=== PATIENT | female | born 1930 | race Caucasian/White ===

== ENCOUNTER 2016-04-09 22:35 | Emergency (ER) | payer OTHER ==
[~2016-04-09] VITALS: Ht 162.6 cm; Wt 102.1 kg
[~2016-04-09 22:35] MED LIST: ALPRAZOLAM0.5 MG PO; ATORVASTATIN CA20 MG PO; BUPROPION HYDR150 M1 PO; CIPRO 500MG TA500 MG PO; DONEPEZIL HYDROC5 MG PO; FUROSEMIDE20 MG PO; LOPRESSOR 25MG25 MG PO; PERCOCET 325 MG1 TA2 PO; POTASSIUM CHLO20 ME1 PO; PRINIVIL 5MG5 MG PO; RESTASIS 0.4 M0.4 ML OPH; VITAMIN D50000 IU PO; XARELTO15 MG PO; XARELTO20 MG PO
--- NOTE | 2016-04-09 22:43 | ED SYNCOPE COMPLAINT ---
History of Present Illness General Chief Complaint: Syncope and Near-Syncope Stated Complaint: BIBA SYNCOPE Source: family, old records, EMS Exam Limitations: dementia Vital Signs & Intake/Output Vital Signs & Intake/Output Vital Signs Date Time Temp Pulse Resp B/P Pulse O2 O2 Flow FiO2 Ox Delivery Rate 04/10 0525 97.4 75 18 140/63 96 Room Air 04/10 0235 68 16 134/69 98 Room Air 04/10 0147 97.0 70 16 126/60 96 Room Air 04/09 2319 Room Air 04/09 2308 130/70 04/09 2248 96.8 84 20 207/81 98 Room Air ED Intake and Output 04/10 0000 04/09 1200 Intake Total Output Total Balance Patient 225 lb Weight Allergies Coded Allergies: MDX - Aspirin (ASPIRIN) (RASH 09/11/14) Reconcile Medications Alprazolam 0.25 MG TABLET 1 TAB PO DAILY ANXIETY (Reported) Atorvastatin Calcium 20 MG TABLET 1 TAB PO DAILY HTN (Reported) Atorvastatin Calcium (Lipitor) 20 MG TABLET 1 TAB PO DAILY CHOLESTEROL ( Reported) BUPROPION HCL (Bupropion XL) 150 MG TAB.ER.24H 1 TAB PO DAILY MENTAL HEALTH ( Reported) Ciprofloxacin (Cipro) 500 MG TABLET 1 TAB PO BID UTI START TOMORROW 06/11/14. Cyclosporine (Restasis 0.4 Ml) 0.05 % DROPERETTE 1 GTT OPH BID EYES (Reported ) DONEPEZIL HCL (Donepezil Hydrochloride) 5 MG TABLET 1 TAB PO DAILY DEMENTIA ( Reported) ERGOCALCIFEROL (VITAMIN D2) (Vitamin D2) 50,000 UNIT CAPSULE 50,000 IU PO Q30D VITAMIN D SUPPLEMENT (Reported) DID NOT TAKE IN HOSPITAL Furosemide 20 MG TABLET 1 TAB PO DAILY DIURETIC (Reported) Lisinopril (Prinivil) 5 MG TABLET 1 TAB PO DAILY BP (Reported) Metoprolol Tartrate (Lopressor) 25 MG TABLET 1 TAB PO DAILY BP (Reported) OXYCODONE HCL/ACETAMINOPHEN (Percocet 5-325 MG Tablet) 325 MG/5 MG TAB 1-2 TAB PO Q4-6 PRN PRN PAIN (Reported) Potassium Chloride 20 MEQ TABLET.ER 1 TAB PO DAILY SUPPLEMENT (Reported) Rivaroxaban (Xarelto) 20 MG TABLET 1 TAB PO DAILY BLOOD THINNER (Reported) with food Triage Nurses Notes Reviewed? yes HPI: Patient was sitting on the toilet when she had a syncopal episode. Patient has dementia and is unable to provide any history however her sister was in the bathroom with her at the time. Patient has been acting appropriately since syncopal episode. Patient did not fall off the toilet and there is no trauma. Family called 911 and brought her in for evaluation. Past History Medical History Any Pertinent Medical History? 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) Gastrointestinal: NONE Hepatic: NONE Renal: nephrolithiasis, urinary incontinence Musculoskeletal: arthritis s/p knee replacement Psychiatric: anxiety, depression Endocrine: NONE Blood Disorders: DVT (x 2), PE Cancer(s): NONE RING FACER/Reproductive: NONE History of MRSA: No History of VRE: No History of CDIFF: No Surgical History Surgical History: RIGHT KNEE REPLACEMENT Psychosocial History Who do you live with Family Services at Home Home Health Aide What is your primary language German Tobacco Use: Never used ETOH Use: denies use Illicit Drug Use: denies illicit drug use Family History Family History, If Any: FATHER Relation not specified for: FH: asthma Hx Contributory? No Review of Systems Review of Systems Constitutional: Reports: see HPI. Physical Exam Physical Exam General Appearance: well developed/nourished, awake, anxious, mild distress Head: atraumatic, normal appearance Eyes: Bilateral: PERRL, EOMI. Ears, Nose, Throat: normal pharynx, normal ENT inspection Neck: normal inspection, supple, full range of motion Respiratory: normal breath sounds, no respiratory distress, lungs clear Cardiovascular: regular rate/rhythm, normal peripheral pulses Gastrointestinal: normal bowel sounds, soft, non-tender, no organomegaly Extremities: normal inspection, normal capillary refill, pedal edema Psychiatric: AT BASELINE PER SISTERS Cranial Nerves: normal hearing, normal speech, PERRL Motor/Sensory: no motor/sensory deficits Core Measures ACS in differential dx? Yes CVA/TIA Diagnosis: No Severe Sepsis Present: No Septic Shock Present: No Progress Differential Diagnosis: drug induced syncope, orthostatic syncope, other valvular disease, pericardial tamponade, pulmonary embolus, seizure, sick sinus syndrome, vasodepressor syncope, ventricular tach/fib Plan of Care: Orders Procedure Date/time Status Heart Healthy Diet 04/10 B Active TROPONIN LEVEL 04/10 453 Complete EKG 04/10 453 Active Add-on Test (ER Only) 04/10 001 Active Telemetry/Salvage Machine Operator 04/09 2242 Active URINALYSIS 04/09 2242 Complete TROPONIN LEVEL 04/09 2242 Complete COMPREHENSIVE METABOLIC PANEL 04/09 2242 Complete CBC WITHOUT DIFFERENTIAL 04/09 2242 Complete CULTURE,URINE 04/09 2239 Active EKG 04/09 2236 Active Laboratory Tests 04/10/16 0505: Troponin I < 0.01 04/09/16 2358: Anion Gap 10, Estimated GFR > 60, BUN/Creatinine Ratio 27.5 H, Glucose 118 H, Calcium 10.3 H, Total Bilirubin 0.4, AST 20, ALT 26, Alkaline Phosphatase 74, Troponin I < 0.01, Total Protein 6.7, Albumin 3.7, Globulin 3.0, Albumin/ Globulin Ratio 1.2 04/09/16 2348: Urine Color YEL, Urine Clarity CLEAR, Urine pH 6.0, Ur Specific [place] >= 1.030 , Urine Protein TRACE H, Urine Ketones NEG, Urine Nitrite POS H, Urine Bilirubin NEG, Urine Urobilinogen 0.2, Ur Leukocyte Esterase TRACE H, Ur Microscopic SEDIMENT EXAMINED, Urine RBC RARE, Urine WBC 5-10 H, Ur Epithelial Cells FEW, Urine Bacteria MOD H, Hyaline Casts 5-10 H, Urine Hemoglobin NEG, Urine Glucose NEG 04/09/16 2315: CBC w Diff NO MAN DIFF REQ, RBC 4.62, MCV 94.3, MCH 30.8, RDW 14.4, MPV 9.9, Gran % 63.1, Lymphocytes % 29.7, Monocytes % 4.2, Eosinophils % 2.1, Basophils % 0.9, Absolute Granulocytes 6.2, Absolute Lymphocytes 2.9, Absolute Monocytes 0.4 , Absolute Eosinophils 0.2, Absolute Basophils 0.1, PUBS MCHC 32.6 L Microbiology 04/09 2239 URINE ROUT: Urine Culture - RECD Pre-Hospital EKG: SINUS RHYTHM WITH A LEFT ANTERIOR VESICULAR BLOCK AND NONSPECIFIC st-t CHANGES. Initial ED EKG: NSR, nonspecific ST T wave chg, LAFB Prior EKG: unchanged Repeat EKG: unchanged Rhythm Strip: normal sinus rhythm Departure Departure Disposition: HOME OR SELF CARE Condition: Stable Clinical Impression Primary Impression: Vasovagal syncope Referrals: DEB ARORA,SIMON Olvera (PCP/Family) Additional Instructions: RETURN IF SYMPTOMS WORSEN OR FOR ANY CONCERNS Departure Forms: Customer Survey General Discharge Information
[2016-04-09 23:29] LABS: ABSOLUTE BASOPHIL COUNT 0.1 /CUMM (0.0-0.2); ABSOLUTE EOSINOPHIL COUNT 0.2 /CUMM (0.0-0.7); ABSOLUTE GRANULOCYTE CT 6.2 /CUMM (1.4-6.5); ABSOLUTE LYMPH COUNT 2.9 /CUMM (1.2-3.4); ABSOLUTE MONOCYTE COUNT 0.4 /CUMM (0.10-0.60); BASOPHIL % 0.9 % (0.0-2.0); EOSINOPHIL % 2.1 % (0-5); GRANULOCYTE % 63.1 % (42.2-75.2); HEMATOCRIT 43.6 % (37-47); MEAN CORPUSCULAR HGB 30.8 PG (27.0-31.0); MEAN CORPUSCULAR HGB CONC 32.6 G/DL (33.0-37.0); MEAN CORPUSCULAR VOLUME 94.3 FL (81.0-99.0); MEAN PLATELET VOLUME 9.9 FL (7.4-10.4); PLATELET COUNT 205 /CUMM (130-400); RBC DISTRIBUTION WIDTH 14.4 % (11.5-14.5); RED BLOOD CELL CT 4.62 /CUMM (4.20-5.40); WHITE BLOOD CELL COUNT 9.8 /CUMM (4.8-10.8)
[2016-04-10] MEDS ORDERED: ATORVASTATIN CA20 M1 PO (00:03)
[2016-04-10 05:25] VITALS: BP 140/63
== END 2016-04-10 07:28 ==
LOC: ERH 22:35
PROVIDERS: Emergency Medicine
DX: R55 Syncope and collapse (principal)
CPT/HCPCS: 81001; 87086; 93005; 93010